=== PATIENT | male | born 1990 | race Two or more races ===

== ENCOUNTER 2022-10-10 19:52 | Emergency (ER) | payer OTHER ==
[~2022-10-10] VITALS: Ht 167.6 cm; Wt 85.9 kg
[2022-10-10] MEDS ORDERED: KETOROLAC TROMETH 30 MG/ML 1ML VIAL IM ONE (21:00)
[2022-10-10] MEDS ORDERED: METOCLOPRAMIDE HCL 5MG/ml INJ 2ml VIAL IM ONE (21:00)
[2022-10-10] MEDS ORDERED: diphenhdrAMINE HCL 50 MG/1 ML VL IM ONE (21:00)
[2022-10-10 21:04] LABS: Basophils # (auto) 0 10 ^3/uL (0-0.2); Basophils % (auto) 0.5 % (0.0-2.0); Eosinophils # (auto) 0.1 10 ^3/uL (0-0.8); Eosinophils % (auto) 1.1 % (0.0-7.0); Hematocrit 45.7 % (41.0-53.0); Hemoglobin 15.4 g/dL (13.5-17.5); Lymphocytes # (auto) 1.1 10 ^3/uL (0.4-5.4); Lymphocytes % (auto) 22.6 % (10.0-50.0); Mean Corpuscular Hemoglobin 29.1 pg (28.0-32.0); Mean Corpuscular Hgb Conc. 33.6 g/dL (32.0-36.0); Mean Corpuscular Volume 86.6 fL (80.0-100.0); Monocytes # (auto) 0.5 10 ^3/uL (0-1.3); Neutrophils # (auto) 3.1 10 ^3/uL (1.6-8.6); Neutrophils % (auto) 64.8 % (37.0-80.0); Nucleated Red Blood Cells % 0.4 %; Red Blood Cells 5.28 10^6/uL (4.5-5.90); Red Cell Distribution Width 13.2 % (11.8-14.3); White Blood Cell 4.8 10^3/uL (4.4-10.8)
[2022-10-10 21:30] LABS: Albumin 3.6 g/dL (3.4-5.0); Calcium 8.9 mg/dL (8.5-10.1); Potassium 4.3 mmol/L (3.5-5.1)
[2022-10-10 21:34] LABS: BUN/Creatinine Ratio 10.9 (10.0-20.0); Bilirubin, Total 0.6 mg/dL (0.2-1.0); Total Protein 7.6 g/dL (6.4-8.2)
[2022-10-10 23:15] VITALS: BP 118/69; PULSE 71; RESP 20; TEMP 98.9; O2SAT 100
[2022-10-10 23:43] LABS: Urine Bacteria FEW /hpf (None Seen); Urine Blood Negative /uL (Negative); Urine Clarity Clear (Clear); Urine Color Yellow (Yellow); Urine Hyaline Cast FEW /lpf (0 - 2); Urine Mucus FEW (None Seen); Urine Protein, UAD TRACE (Negative); Urine Specific Gravity 1.019 (1.001-1.035); Urine WBC 1 /hpf (0 - 3); Urine pH 7.5 (5.0-8.0)
== END 2022-10-11 02:01 | disposition home or self-care (01) ==
LOC: ER 19:52
DX: R51.9 Headache, unspecified (principal); R73.9 Hyperglycemia, unspecified; R74.01 Elevation of levels of liver transaminase levels; R74.8 Abnormal levels of other serum enzymes
CPT/HCPCS: 36415; 70450; 80053; 81001; 83690; 85025; 96372; 99285; J1200; J1885; J2765

== ENCOUNTER 2022-12-14 11:58 | Emergency (ER) | payer OTHER ==
[~2022-12-14] VITALS: Ht 167.6 cm; Wt 89.2 kg
[2022-12-14 12:46] VITALS: BP 134/80; PULSE 78; RESP 20; TEMP 98.4; O2SAT 96
[2022-12-14] MEDS ORDERED: MUPI2OIN2 EX (14:24)
[2022-12-14] MEDS ORDERED: CEPH500C PO (14:24)
[2022-12-14] MEDS ORDERED: IBUP1TAB5 PO (14:24)
[2022-12-14] MEDS ORDERED: CEPHALEXIN 250 MG CAP PO ONE (14:30)
[2022-12-14] MEDS ORDERED: NEOMYCIN-BACITRACIN-POLYM UNITDOSE PKG TOP OINT TOP ONE (14:30)
[2022-12-14] MEDS ORDERED: HYDROcodone-ACET 5/325MG TAB PO ONE (14:30)
[2022-12-14] MEDS ORDERED: TETANUS-DIPTH-ACEL PERTUSSIS 0.5ML SYR Tdap IM ONE (14:30)
== END 2022-12-14 14:34 | disposition home or self-care (01) ==
LOC: ER 11:58
DX: S61.217A Laceration without foreign body of left little finger without damage to nail, initial encounter (principal); W26.9XXA Contact with unspecified sharp object(s), initial encounter; Y93.89 Activity, other specified; Y92.89 Other specified places as the place of occurrence of the external cause; Y99.8 Other external cause status
CPT/HCPCS: 12002